=== PATIENT | female | born 1945 | race Asian ===

== ENCOUNTER 2016-04-20 08:05 | Day surgery (SDC) | payer OTHER ==
[2016-04-19 13:40] VITALS: BMI 31.1
[2016-04-20] MEDS ORDERED: LIDOCAINE HCL/PF 1% SDV 5ML VIAL ONE (09:18)
[2016-04-20] MEDS ORDERED: PROPOFOL 20 ML ONE ×2 (09:18)
[2016-04-20 10:26] VITALS: TEMP 97.2
[2016-04-20 11:10] VITALS: BP 134/56; PULSE 56
== END 2016-04-20 11:10 | disposition home or self-care (01) ==
LOC: JASU-ENDO 08:05
PROVIDERS: ATTEND Internal Medicine Gastroenterology
PROC: 0DJD8ZZ Inspection of Lower Intestinal Tract, Via Natural or Artificial Opening Endoscopic (ICD-10-PCS; principal; 2016-04-20 09:00)
DX: K62.89 Other specified diseases of anus and rectum (principal); R19.4 Change in bowel habit; K64.8 Other hemorrhoids; Q43.8 Other specified congenital malformations of intestine

== ENCOUNTER 2016-05-04 08:16 | Day surgery (SDC) | payer OTHER ==
[2016-05-04 08:41] VITALS: BMI 29.6
[2016-05-04] MEDS ORDERED: PROPOFOL 20 ML ONE (09:21)
[2016-05-04] MEDS ORDERED: LIDOCAINE HCL/PF 1% SDV 5ML VIAL ONE (09:21)
[2016-05-04 10:07] VITALS: TEMP 98.1
[2016-05-04 11:24] VITALS: BP 123/60; PULSE 55
--- NOTE | 2016-05-05 13:29 | PATH ---
Surgical Pathology Report Patient Name: AMA ACHARYA [facility]. Rec. #: [id number] /Age/Gender: 1945 (Age: 70) / F Account: [id number] Location: [facility]-ENDOSCOPY Taken: 05/04/2016 Received: 05/04/2016 Reported: 05/05/2016 Physicians: Emil Chiu M.D. Specimen(s) Received A: BX EROSION BODY B: BX 2ND PORTION DUODENUM C: BX GE JUNCTION IRREGULAR Z-LINE Clinical History Abdominal pain, GERD, nausea and vomiting, early satiety, anemia Irregular Z-line in GE junction, gastritis Final Diagnosis A. STOMACH, BODY, EROSION, BIOPSY: GASTRIC OXYNTIC MUCOSA WITH MODERATE CHRONIC GASTRITIS WITH SURFACE EROSION. IMMUNOSTAIN FOR H. PYLORI IS NEGATIVE FOR ORGANISMS. B. DUODENUM, SECOND PORTION, BIOPSY: DUODENAL MUCOSA WITH MILD CHRONIC INFLAMMATION. NO HISTOLOGIC EVIDENCE OF GLUTEN SENSITIVE ENTEROPATHY (CELIAC DISEASE). C. GE JUNCTION, IRREGULAR Z-LINE, BIOPSY: SQUAMOCOLUMNAR JUNCTIONAL MUCOSA WITH CHRONIC INFLAMMATION AND REFLUX TYPE CHANGES. NO INTESTINAL METAPLASIA (OCASIO'S ESOPHAGUS) IDENTIFIED. Electronically Signed Justus West M.D. Gross Description A. Received in formalin, labeled "biopsy erosion of body" are 4 huff, irregular portions of soft tissue ranging from 0.2-0.3 cm in greatest dimension. The specimens are submitted in toto in one cassette. B. Received in formalin, labeled "biopsy second portion of duodenum" are 2 huff, irregular portions of soft tissue measuring 0.1 and 0.3 cm in greatest dimension. The specimens are submitted in toto in one cassette. C. Received in formalin, labeled "biopsy GE junction irregular Z line" is a huff, irregular portion of soft tissue measuring 0.3 cm in greatest dimension. The specimen is submitted in toto in one cassette. 05/04/201605/04/2016
== END 2016-05-04 11:24 | disposition home or self-care (01) ==
LOC: JASU-ENDO 08:16
PROVIDERS: ATTEND Internal Medicine Gastroenterology
PROC: 0DB68ZX Excision of Stomach, Via Natural or Artificial Opening Endoscopic, Diagnostic (ICD-10-PCS; 2016-05-04)
PROC: 0DB58ZX Excision of Esophagus, Via Natural or Artificial Opening Endoscopic, Diagnostic (ICD-10-PCS; 2016-05-04)
PROC: 0DB98ZX Excision of Duodenum, Via Natural or Artificial Opening Endoscopic, Diagnostic (ICD-10-PCS; principal; 2016-05-04 09:00)
DX: D64.9 Anemia, unspecified (principal); K25.9 Gastric ulcer, unspecified as acute or chronic, without hemorrhage or perforation; R10.13 Epigastric pain
CPT/HCPCS: 88305-TC; 88342-TC

== ENCOUNTER 2017-08-14 09:29 | Observation (INO) | payer OTHER ==
--- NOTE | 2017-08-14 10:25 | PDOC ---
Attending Attestation - HPI HPI: 08/14/17 12:35 The patient is a 72 year old female with a significant PMH of GERD, hypertension, and hypercholesterolemia who presents to the emergency department with lightheadedness, dizziness and near syncope for 3 days. The patient's daughter reports that the patient has not been eating much food secondary to inability to keep it down. The patient's daughter reports that the patients dizziness has been intermittent for the past 3 days. The patient's daughter states that today the patient had a near syncopal episode. Denies loc or any injury. Denies any other symptoms. Denies chest pain, shortness of breath, headache. Denies fever, chills, nausea, vomit, diarrhea, constipation or any urinary symptoms. Denies any other complaints. PCP: Dr. Cedeño - Physicial Exam PE: 08/14/17 12:35 GENERAL: (+) pale conjunctiva. Awake, alert, and fully oriented, in no acute distress HEAD: No signs of trauma EYES: PERRLA, EOMI, sclera anicteric, conjunctiva clear ENT: Auricles normal inspection, hearing grossly normal, nares patent, oropharynx clear without exudates. Moist mucosa NECK: Normal ROM, supple, no lymphadenopathy, JVD, or masses LUNGS: Breath sounds equal, clear to auscultation bilaterally. No wheezes, and no crackles HEART: Regular rate and rhythm, normal S1 and S2, no murmurs, rubs or gallops ABDOMEN: Soft, nontender, normoactive bowel sounds. No guarding, no rebound. No masses EXTREMITIES: Normal range of motion, no edema. No clubbing or cyanosis. No cords, erythema, or tenderness NEUROLOGICAL: Cranial nerves II through XII grossly intact. Normal speech, normal gait SKIN: Warm, Dry, normal turgor, no rashes or lesions noted. Documentation prepared by Thuy Ramirez, acting as medical assistant internal medicine for Yaneth Hardy MD. <Thuy Ramirez - Last Filed: 08/14/17 12:35> - Resident Resident Name: DouglasVadim - ED Attending Attestation I have performed the following: I have examined & evaluated the patient, The case was reviewed & discussed with the resident, I agree w/resident's findings & plan, Exceptions are as noted - Medical Decision Making 08/14/17 10:24 I, Dr. Yaneth Hardy, DO, attest that this document has been prepared under my direction and personally reviewed by me in its entirety. I further attest, that it accurately reflects all work, treatment, procedures and medical decision -making performed by me. 08/14/17 11:52 a/p: 72yo female with 3 days of near syncope hx of anemia no syncope, no cp/sob denies hematuria or blood in stool - hx of constipation and sigmoid ulcer -gi is Dr. Chiu -hx of dm -will check labs, ekg, cxr -will check orthostatics -will give ivf hydration -will monitor and reassess -on PTU - will check thyroid function 08/14/17 13:[address] Tipton - requests transfusion of 1 unit prbc -requests cards eval daughter at the bedside requests cards to be Dr. Ballesteros will place in obs <Yaneth Hardy - Last Filed: 08/14/17 13:18> Heart Score/ECG Review - ECG Intrepretation Comment:: 08/14/17 11:52 sinus erinn at 57, nl axis, nl interval, t wave flattening diffusely <Yaneth Hardy - Last Filed: 08/14/17 13:18>
--- NOTE | 2017-08-14 10:42 | PDOC ---
History of Present Illness - General Chief Complaint: Lightheaded Stated Complaint: DIZZINESS Time Seen by Provider: 08/14/17 10:17 - History of Present Illness Initial Comments: 08/14/17 10:36 72 year old female with a hx of DM, HTN, HLD, hypothyroidism, anemia presents to the hospital for several day hx of dizziness, lightheadedness and near- syncope. She reports that there were no notable inciting factors. States that she does not feel like the room is spinning. Additionally reports some occasional numbness. The patient's daughter checked her glucose and found it to be 150 yesterday. Denies chest pain, shortness of breath, fevers, chills, nausea , vomiting, diarrhea. Allergies: NKDA PCP: Dr. Abraham Smoke: none Alcohol: none Past History - Past Medical History Allergies/Adverse Reactions: Allergies Allergy/AdvReac Type Severity Reaction Status Date / Time No Known Allergies Allergy Verified 08/14/17 09:46 Home Medications: Ambulatory Orders Propylthiouracil [Ptu -] 50 mg PO DAILY 11/04/12 Simvastatin [Zocor -] 20 mg PO HS 11/04/12 Gabapentin 300 mg PO BID 04/19/16 Glyburide 5 mg PO BID 04/19/16 Losartan Potassium [Cozaar] 25 mg PO DAILY 04/19/16 Omeprazole 20 mg PO DAILY 04/19/16 Insulin (Levemir) [Levemir Vial] 30 unit SQ DAILY 08/14/17 Insulin Glulisine [Apidra] 0 unit SQ ASDIR PRN 08/14/17 Multivitamin [Multiple Vitamins] 1 each PO DAILY 08/14/17 Anemia: Yes Asthma: No Cancer: No Cardiac Disorders: No CVA: No COPD: No CHF: No Dementia: No Diabetes: Yes (IDDM) GI Disorders: Yes (GERD,COLONIC POLYP) Disorders: No HTN: Yes Hypercholesterolemia: Yes Liver Disease: Yes (FATTY LIVER) Seizures: No Thyroid Disease: Yes (THYROID NODULES,GOITER) - Surgical History Abdominal Surgery: No Appendectomy: No Cardiac Surgery: No Cholecystectomy: No Lung Surgery: No Neurologic Surgery: No Orthopedic Surgery: No - Suicide/Smoking/Psychosocial Hx Smoking Status: No Smoking History: Never smoked Number of Cigarettes Smoked Daily: 0 Hx Alcohol Use: No Substance Use Type: None Hx Substance Use Treatment: No *Physical Exam - Vital Signs Last Vital Signs Temp Pulse Resp BP Pulse Ox 99.2 F 63 18 115/60 99 08/14/17 09:44 08/14/17 09:44 08/14/17 09:44 08/14/17 09:44 08/14/17 09:44 - Physical Exam Comments: 08/14/17 10:42 GENERAL: A&Ox3, no acute distress EYES: PERRLA, EOMI, pale conjunctiva ENT: Moist mucus membranes NECK: No JVD LUNGS: CTA, no wheezes HEART: RRR, no murmurs ABDOMEN: Soft, nontender, BS present MUSCULOSKELETAL: No CVA Tenderness EXTREMITIES: 2+ pulses, no edema. NEUROLOGICAL: Cranial nerves II-XII intact. 08/14/17 11:29 ED Treatment Course - LABORATORY CBC & Chemistry Diagram: 08/16/17 06:30 08/15/17 06:00 Medical Decision Making - Medical Decision Making 08/14/17 10:43 72yo female with a history of anemia, hypothyroid, HTN, HLD presents for 3 days of dizzness, lightheadedness and near-syncopy DDx: orthostatic hypotension, hypo/hyperglycemia, hypothyroidism, electrolyte abnormality, unlikely vertigo -cbc, cmp, ekg, trop, TSH, free T4, LA, mag, UA, BNP, CXR -will give 500cc bolus of fluids -will re-evaluate 08/14/17 11:28 -orthostatic vitals: Laying down: 123/58 Standin/54 *DC/Admit/Observation/Transfer Diagnosis at time of Disposition: Anemia - Discharge Dispostion Decision to Admit order: Yes - Referrals - Patient Instructions - Post Discharge Activity
[2017-08-14] MEDS ORDERED: SODIUM CHLORIDE 500 ML IV STA (10:43)
[2017-08-14 12:06] LABS: BASO % 0.9 % (0-2.0); EOS % 1.5 % (0-4.5); HEMATOCRIT 26.3 % (32.4-45.2); LYMPH % 31.2 % (8-40); MCHC 30.4 g/dl (32.0-36.0); MEAN CELL VOLUME 60.9 fl (80-96); MEAN PLT VOLUME 8.5 fl (7.5-11.1); MONO % 3.9 % (3.8-10.2); NEUT % 62.5 % (42.8-82.8); PLATELET COUNT 196 K/MM3 (134-434); RBC 4.32 M/mm3 (3.60-5.2); RDW 18.8 % (11.6-15.6); WHITE BLOOD COUNT 7.2 K/mm3 (4.0-10.0)
[2017-08-14 12:07] LABS: URINE APPEARANCE CLEAR; URINE BILIRUBIN NEGATIVE (<2.0 mg/dL); URINE COLOR STRAW; URINE GLUCOSE (UA) 1+ (NEGATIVE); URINE KETONE NEGATIVE (NEGATIVE); URINE LEUK ESTERASE NEGATIVE (NEGATIVE); URINE NITRITE NEGATIVE (NEGATIVE); URINE PROTEIN NEGATIVE (NEGATIVE); URINE UROBILINOGEN NEGATIVE mg/dL (0.2-1.0)
[2017-08-14 12:08] LABS: MCH 18.5 pg (25.7-33.7)
[2017-08-14] MEDS ORDERED: MECLIZINE HCL 12.5 MG TABLET PO ONE (12:42)
[2017-08-14 12:46] LABS: ANISOCYTOSIS 2+; MACROCYTOSIS 0; OVALOCYTE 1+; PLATELET ESTIMATE NORMAL
[2017-08-14 12:47] LABS: ALBUMIN 3.3 g/dl (3.4-5.0); ANION GAP 7 (8-16); BILIRUBIN,TOTAL 0.2 mg/dL (0.2-1.0); BLOOD UREA NITROGEN 10 mg/dL (7-18); CALCIUM 8.6 mg/dL (8.5-10.1); CHLORIDE 109 mmol/L (98-107); CO2 26 mmol/L (21-32); CREATININE 0.8 mg/dL (0.55-1.02); GLUCOSE,RANDOM 179 mg/dL (74-106); MAGNESIUM 2.4 mg/dL (1.8-2.4); SGOT/AST 20 U/L (15-37); SGPT/ALT 25 U/L (12-78); SODIUM 142 mmol/L (136-145)
[2017-08-14 12:51] LABS: ALK PHOS 109 U/L (45-117); N-TERMINAL BNP 114.31 pg/ml (5-125); TOT PROT 7.7 g/dl (6.4-8.2)
[2017-08-14] MEDS ORDERED: MECLIZINE HCL 12.5 MG TABLET ONE (13:13)
--- NOTE | 2017-08-14 19:18 | CON.CARD ---
Consult Consult Specialty:: Cardiology - History of Present Illness Chief Complaint: dizziness, near syncope History of Present Illness: 72 year old female with a hx of DM, HTN, HLD, hypothyroidism, anemia presents to the hospital for several day hx of dizziness, lightheadedness and near- syncope. She reports that there were no notable inciting factors. States that she does not feel like the room is spinning. Additionally reports some occasional numbness. The patient's daughter checked her glucose and found it to be 150 yesterday. Denies chest pain, shortness of breath, fevers, chills, nausea , vomiting, diarrhea. PMH of GERD, hypertension, and hypercholesterolemia who presents to the emergency department with lightheadedness, dizziness and near syncope for 3 days. The patient's daughter reports that the patient has not been eating much food secondary to inability to keep it down. The patient's daughter reports that the patients dizziness has been intermittent for the past 3 days. The patient's daughter states that today the patient had a near syncopal episode. Denies loc or any injury. Denies any other symptoms. Denies chest pain, shortness of breath, headache. Denies fever, chills, nausea, vomit, diarrhea, constipation or any urinary symptoms. Denies any other complaints. PCP: Dr. Cedeño - History Source History Provided By: Patient, Medical Record - Past Medical History Cardio/Vascular: Yes: HTN, Hyperlipdemia Endocrine: Yes: Diabetes Mellitus, Hypothyroidism - Alcohol/Substance Use Hx Alcohol Use: No - Smoking History Smoking history: Never smoked Aproximately how many cigarettes per day: 0 Home Medications - Allergies Allergies/Adverse Reactions: Allergies Allergy/AdvReac Type Severity Reaction Status Date / Time No Known Allergies Allergy Verified 08/14/17 09:46 - Home Medications Home Medications: Ambulatory Orders Propylthiouracil [Ptu -] 50 mg PO DAILY 11/04/12 Simvastatin [Zocor -] 20 mg PO HS 11/04/12 Gabapentin 300 mg PO BID 04/19/16 Glyburide 5 mg PO BID 04/19/16 Losartan Potassium [Cozaar] 25 mg PO DAILY 04/19/16 Omeprazole 20 mg PO DAILY 04/19/16 Insulin (Levemir) [Levemir Vial] 30 unit SQ DAILY 08/14/17 Insulin Glulisine [Apidra] 0 unit SQ ASDIR PRN 08/14/17 Multivitamin [Multiple Vitamins] 1 each PO DAILY 08/14/17 Review of Systems - Review of Systems Constitutional: reports: No Symptoms Eyes: reports: No Symptoms HENT: reports: No Symptoms Neck: reports: No Symptoms Cardiovascular: reports: No Symptoms Gastrointestinal: reports: No Symptoms Genitourinary: reports: No Symptoms Breasts: reports: No Symptoms Reported Musculoskeletal: reports: No Symptoms Integumentary: reports: No Symptoms Neurological: reports: Dizziness, Syncope Endocrine: reports: No Symptoms Hematology/Lymphatic: reports: No Symptoms Psychiatric: reports: No Symptoms Vital Signs: Vital Signs Temperature 98.2 F 08/14/17 17:35 Pulse Rate 58 L 08/14/17 17:35 Respiratory Rate 17 08/14/17 17:35 Blood Pressure 124/58 08/14/17 17:35 O2 Sat by Pulse Oximetry (%) 100 08/14/17 17:35 Constitutional: Yes: Well Nourished, No Distress, Calm Eyes: Yes: WNL, Conjunctiva Clear, EOM Intact HENT: Yes: WNL, Atraumatic, Normocephalic Neck: Yes: WNL, Supple, Trachea Midline Respiratory: Yes: WNL, Regular, CTA Bilaterally Gastrointestinal: Yes: WNL, Normal Bowel Sounds Renal/: Yes: WNL Cardiovascular: Yes: WNL, Regular Rate and Rhythm Musculoskeletal: Yes: WNL Extremities: Yes: WNL Integumentary: Yes: WNL Neurological: Yes: WNL, Alert, Oriented ...Motor Strength: WNL Psychiatric: Yes: WNL, Alert, Oriented - Other Data Labs, Other Data: CBC, BMP 08/14/17 12:00 08/14/17 12:00 Troponin, BNP 08/14/17 08/14/17 12:00 12:00 Troponin I < 0.02 B-Natriuretic Peptide 114.31 Cancelled Troponin, BNP 08/14/17 08/14/17 12:00 12:00 Troponin I < 0.02 B-Natriuretic Peptide 114.31 Cancelled Imaging - Results Chest X-ray: Image Reviewed (no i/e) EKG: Image Reviewed (sr rep abn) Problem List - Problems (1) Anemia Code(s): D64.9 - ANEMIA, UNSPECIFIED Assessment/Plan GERD, hypertension, hypothyroidism, and hypercholesterolemia who presents to the emergency department with anemia lightheadedness, dizziness and near syncope for 3 days no evidence of CHF mi, arrhythmia Plan; cardiac loo stable echo telemetry gi w/u.
--- NOTE | 2017-08-14 19:36 | EKG ---
Test Reason : Blood Pressure : / mmHG Vent. Rate : 057 BPM Atrial Rate : 057 BPM P-R Int : 148 ms QRS Dur : 078 ms QT Int : 420 ms P-R-T Axes : 067 047 038 degrees QTc Int : 408 ms SINUS BRADYCARDIA POSSIBLE LEFT ATRIAL ENLARGEMENT NONSPECIFIC T WAVE ABNORMALITY ABNORMAL ECG WHEN COMPARED WITH ECG OF 14-AUG-2008 11:46, NONSPECIFIC T WAVE ABNORMALITY, WORSE IN ANTERIOR LEADS Confirmed by ELSA OLIVAS, JENNIFER ([id number]) on 08/14/2017 7:36:34 PM Referred By: Confirmed By:JENNIFER HUNTER MD
[2017-08-14] MEDS ORDERED: INSULIN (LEVEMIR) 100 UNITS/ML UNITS SQ SCH ×2 (22:00)
[2017-08-14] MEDS ORDERED: LOSARTAN POTASSIUM 25 MG TABLET ONE (23:03)
[2017-08-14] MEDS ORDERED: ATORVASTATIN CA 40 MG TABLET (FP) ONE (23:03)
[2017-08-14] MEDS ORDERED: INSULIN (LEVEMIR) 100 UNITS/ML UNITS SQ ONE (23:04)
[2017-08-14] MEDS: ATORVASTATIN CA 20 MG TABLET (FP) PO SCH (23:10)
[2017-08-14] MEDS: LOSARTAN POTASSIUM 25 MG TABLET PO SCH (23:10)
[2017-08-15 03:04] VITALS: BMI 28.0
[2017-08-15 07:22] LABS: BASO % 0.9 % (0-2.0); EOS % 3.2 % (0-4.5); HEMATOCRIT 30.9 % (32.4-45.2); HEMOGLOBIN 9.7 GM/dL (10.7-15.3); LYMPH % 47.5 % (8-40); MCH 20.8 pg (25.7-33.7); MCHC 31.4 g/dl (32.0-36.0); MEAN CELL VOLUME 66.1 fl (80-96); MEAN PLT VOLUME 8.7 fl (7.5-11.1); MONO % 5.6 % (3.8-10.2); NEUT % 42.8 % (42.8-82.8); PLATELET COUNT 189 K/MM3 (134-434); RBC 4.68 M/mm3 (3.60-5.2); RDW 24.4 % (11.6-15.6); WHITE BLOOD COUNT 7.9 K/mm3 (4.0-10.0)
[2017-08-15 07:46] LABS: CHLORIDE 111 mmol/L (98-107); SODIUM 144 mmol/L (136-145)
[2017-08-15 08:03] LABS: ALK PHOS 96 U/L (45-117); ANION GAP 7 (8-16); BILIRUBIN,TOTAL 0.3 mg/dL (0.2-1.0); BLOOD UREA NITROGEN 9 mg/dL (7-18); CALCIUM 8.7 mg/dL (8.5-10.1); CO2 26 mmol/L (21-32); CREATININE 0.6 mg/dL (0.55-1.02); GLUCOSE,RANDOM 72 mg/dL (74-106); SGOT/AST 20 U/L (15-37); SGPT/ALT 22 U/L (12-78)
[2017-08-15] MEDS: glyBURIDE 5 MG TABLET (UD) PO SCH (09:17)
[2017-08-15] MEDS: LOSARTAN POTASSIUM 25 MG TABLET PO SCH (09:17)
[2017-08-15] MEDS: PANTOPRAZOLE 20 MG TABLET (FP) PO SCH (09:17)
--- NOTE | 2017-08-15 11:18 | HP ---
DATE OF ADMISSION: 08/14/2017 HISTORY OF PRESENT ILLNESS: Patient is a 72-year-old female with a history of diabetes, hypertension, hyperlipidemia, hypothyroidism, and anemia who presented to the hospital for several days of dizziness, lightheadedness, and near syncope. There is no nausea, no vomiting. Patient checked her glucose at home and it showed 150. Patient has no chest pain, shortness of breath, fever, chills, nausea, vomiting , or diarrhea. No history of headache. No blurry vision. No palpitations. PAST MEDICAL HISTORY: Patient had a history of hypothyroidism, hypercholesterolemia, diabetes, anemia, history of Crohn's disease, colon polyp, fatty liver, and thyroid _nodule SURGICAL HISTORY: Nothing significant. PERSONAL HISTORY: No history of smoking, drugs, or alcohol. ALLERGIES: No known drug allergies. MEDICATIONS: Patient is on PTU 50 mg daily, simvastatin 10 mg daily, Colace 100 mg, gabapentin 100 mg p.o. b.i.d., Viibryd 5 mg p.o. daily, Lantus 38 units daily, losartan potassium 25 mg daily, omeprazole 20 mg p.o. daily. SOCIAL HISTORY: Patient lives with her family. REVIEW OF SYSTEMS: General: Pallor present. Respiratory: Nothing significant. Cardiovascular: History of hypertension, hypercholesterolemia. Gastrointestinal: History of fatty liver with colonic polyp. Central Nervous System: No seizure disorders. Occasional dizziness. Musculoskeletal: Nothing significant. PHYSICAL EXAMINATION: Vital Signs: Temperature 99.2, pulse 63, respirations 18, blood pressure 115/60 , pulse 99 per minute. General: Alert, oriented x3, in no acute distress. HEENT: Pupils are equal, reactive to light and accommodation. Moist mucus membranes. Neck: No JVD. Lungs: Clear to auscultation. Heart: First and second sound normal. Abdomen: Soft, nontender. No mass present. Musculoskeletal: No CVA tenderness. Extremities: Radial pulses present. Neurologic: Cranial nerves intact. No apparent motor or sensory deficit. Reflexes are normal. DIAGNOSTIC DATA: X-ray of the chest showed no acute infiltrate. EKG shows sinus bradycardia. Possible left atrial enlargement. Nonspecific T-wave abnormality. Patient was given IV fluids and antibiotics in the emergency room. Regarding the labs, CBC: Hemoglobin 18, hematocrit 36.3, WBC 7.2, platelets 196. Chemistries : Sodium 142, potassium 4, chloride 109, bicarbonate 26, BUN 10, creatinine 0.8, glucose of 179, lactic acid of 1.6, calcium 8.6, AST and ALT are normal. CK 196 , troponin negative, BNP 114.31. Free T4 0.84 and normal. TSH is 0.2. Urine glucose 1+. Patient requires observation. ADMITTING DIAGNOSES: Anemia, dizziness, near syncope, negative hypertension. PLAN: Transfuse 1 unit of blood, packed RBCs. Cardiology consultation. Monitor the patient. Repeat the CBC in the a.m. Continue the home medications. Observe the patient for 24 hours. If stable and the hemoglobin is stable, the patient will be discharged home. Patient is stable on the floor. THI RUTLEDGE M.D. [id number] MTDD
--- NOTE | 2017-08-15 11:28 | PN ---
Progress Note, Physician Chief Complaint: Pt lying in bed Mild dizziness present s/p bllod transfusion CBC improved cardiology consult GI w/u for anemia - Current Medication List Current Medications: Active Medications Atorvastatin Calcium (Lipitor -) 20 mg PO HS [facility] Last Admin: 08/14/17 23:10 Dose: 20 mg Glyburide (Diabeta -) 5 mg PO DAILY@0700 [facility] Last Admin: 08/15/17 09:17 Dose: 5 mg Insulin Detemir (Levemir Vial) 30 units SQ HS [facility] Last Admin: 08/14/17 23:11 Dose: 30 units Losartan Potassium (Cozaar -) 25 mg PO DAILY [facility] Last Admin: 08/15/17 09:17 Dose: 25 mg Pantoprazole Sodium (Protonix -) 20 mg PO DAILY [facility] Last Admin: 08/15/17 09:17 Dose: 20 mg - Objective Vital Signs: Vital Signs Temperature 97.1 F L 08/15/17 02:56 Pulse Rate 51 L 08/15/17 02:56 Respiratory Rate 20 08/15/17 02:56 Blood Pressure 131/59 08/15/17 02:56 O2 Sat by Pulse Oximetry (%) 100 08/14/17 21:25 Constitutional: Yes: No Distress Eyes: Yes: Conjunctiva Clear HENT: Yes: Atraumatic, Normocephalic Neck: Yes: Supple, Trachea Midline Cardiovascular: Yes: Regular Rate and Rhythm Respiratory: Yes: Regular, CTA Bilaterally Gastrointestinal: Yes: Normal Bowel Sounds, Soft Musculoskeletal: Yes: WNL Extremities: Yes: WNL Edema: No Peripheral Pulses WNL: Yes Neurological: Yes: WNL, Alert, Oriented ...Motor Strength: WNL Psychiatric: Yes: Alert, Oriented Labs: CBC, BMP 08/15/17 06:00 08/15/17 06:00 Assessment/Plan ANEMIA dizziness DM hypertension hypercholestrolemia GERD PLAN monitor the Patient GI evaluation Cardilogy f/u neurology consult Continue medications
[2017-08-15] MEDS: INSULIN (LEVEMIR) 100 UNITS/ML UNITS SQ SCH (12:38)
[2017-08-15] MEDS ORDERED: INSULIN (LEVEMIR) 100 UNITS/ML UNITS SQ ONE (12:40)
--- NOTE | 2017-08-15 13:27 | PN ---
Progress Note, Physician History of Present Illness: 72 year old female with a hx of DM, HTN, HLD, hypothyroidism, anemia presents to the hospital for several day hx of dizziness, lightheadedness and near- syncope. She reports that there were no notable inciting factors. States that she does not feel like the room is spinning. Additionally reports some occasional numbness. The patient's daughter checked her glucose and found it to be 150 yesterday. Denies chest pain, shortness of breath, fevers, chills, nausea , vomiting, diarrhea. PMH of GERD, hypertension, and hypercholesterolemia who presents to the emergency department with lightheadedness, dizziness and near syncope for 3 days. The patient's daughter reports that the patient has not been eating much food secondary to inability to keep it down. The patient's daughter reports that the patients dizziness has been intermittent for the past 3 days. The patient's daughter states that today the patient had a near syncopal episode. Denies loc or any injury. Denies any other symptoms. Denies chest pain, shortness of breath, headache. Denies fever, chills, nausea, vomit, diarrhea, constipation or any urinary symptoms. Denies any other complaints. PCP: Dr. Cedeño - Current Medication List Current Medications: Active Medications Atorvastatin Calcium (Lipitor -) 20 mg PO HS [facility] Last Admin: 08/14/17 23:10 Dose: 20 mg Glyburide (Diabeta -) 5 mg PO DAILY@0700 [facility] Last Admin: 08/15/17 09:17 Dose: 5 mg Insulin Aspart (Novolog Vial Sliding Scale -) 1 vial SQ ACHS [facility]; Protocol Insulin Detemir (Levemir Vial) 30 units SQ ACBK [facility] Last Admin: 08/15/17 12:38 Dose: 30 units Losartan Potassium (Cozaar -) 25 mg PO DAILY [facility] Last Admin: 08/15/17 09:17 Dose: 25 mg Pantoprazole Sodium (Protonix -) 20 mg PO DAILY [facility] Last Admin: 08/15/17 09:17 Dose: 20 mg - Objective Vital Signs: Vital Signs Temperature 97.1 F L 08/15/17 02:56 Pulse Rate 51 L 08/15/17 02:56 Respiratory Rate 20 08/15/17 02:56 Blood Pressure 131/59 08/15/17 02:56 O2 Sat by Pulse Oximetry (%) 100 08/14/17 21:25 Eyes: Yes: WNL, Conjunctiva Clear, EOM Intact HENT: Yes: WNL, Atraumatic, Normocephalic Neck: Yes: WNL, Supple, Trachea Midline Cardiovascular: Yes: WNL, Regular Rate and Rhythm Respiratory: Yes: WNL, Regular, CTA Bilaterally Gastrointestinal: Yes: WNL, Normal Bowel Sounds Genitourinary: Yes: WNL Musculoskeletal: Yes: WNL Extremities: Yes: WNL Edema: No Integumentary: Yes: WNL Neurological: Yes: WNL, Alert, Oriented ...Motor Strength: WNL Psychiatric: Yes: WNL Labs: CBC, BMP 08/15/17 06:00 08/15/17 06:00 Laboratory Tests 08/14/17 08/14/17 08/14/17 12:00 12:00 12:00 WBC RBC Hgb Hct MCV MCH MCHC RDW Plt Count MPV Absolute Neuts (auto) Neutrophils % Lymphocytes % Monocytes % Eosinophils % Basophils % Nucleated RBC % Hypochromia Platelet Estimate Polychromasia Poikilocytosis Basophilic Stippling Anisocytosis Microcytosis Macrocytosis Ovalocytes Sodium 142 Potassium 4.0 Chloride 109 H Carbon Dioxide 26 Anion Gap 7 L BUN 10 Creatinine 0.8 Creat Clearance w eGFR > 60 POC Glucometer Random Glucose 179 H Lactic Acid 1.6 Calcium 8.6 Magnesium 2.4 Total Bilirubin 0.2 D AST 20 ALT 25 Alkaline Phosphatase 109 Creatine Kinase 196 H Creatine Kinase Index 0.9 CK-MB (CK-2) 1.77 Troponin I < 0.02 B-Natriuretic Peptide 114.31 Total Protein 7.7 Albumin 3.3 L TSH Free T4 Urine Color Straw Urine Appearance Clear Urine pH 5.0 Ur Specific [place] 1.004 Urine Protein Negative Urine Glucose (UA) 1+ H Urine Ketones Negative Urine Blood Negative Urine Nitrite Negative Urine Bilirubin Negative Urine Urobilinogen Negative Ur Leukocyte Esterase Negative Blood Type Antibody Screen Crossmatch 08/14/17 08/14/17 08/14/17 12:00 12:00 12:00 WBC 7.2 RBC 4.32 Hgb 8.0 L D Hct 26.3 L MCV 60.9 L MCH 18.5 L MCHC 30.4 L RDW 18.8 H Plt Count 196 MPV 8.5 Absolute Neuts (auto) 4.5 Neutrophils % 62.5 Lymphocytes % 31.2 Monocytes % 3.9 Eosinophils % 1.5 Basophils % 0.9 Nucleated RBC % 0 Hypochromia 2+ Platelet Estimate Normal Polychromasia 1+ Poikilocytosis 1+ Basophilic Stippling 1+ Anisocytosis 2+ Microcytosis 2+ Macrocytosis 0 Ovalocytes 1+ Sodium Potassium Chloride Carbon Dioxide Anion Gap BUN Creatinine Creat Clearance w eGFR POC Glucometer Random Glucose Lactic Acid Calcium Magnesium Total Bilirubin AST ALT Alkaline Phosphatase Creatine Kinase Creatine Kinase Index CK-MB (CK-2) Troponin I B-Natriuretic Peptide Cancelled Total Protein Albumin TSH Free T4 Urine Color Urine Appearance Urine pH Ur Specific [place] Urine Protein Urine Glucose (UA) Urine Ketones Urine Blood Urine Nitrite Urine Bilirubin Urine Urobilinogen Ur Leukocyte Esterase Blood Type O POSITIVE Antibody Screen Negative Crossmatch See Detail 08/14/17 08/14/17 08/14/17 12:00 12:50 23:12 WBC RBC Hgb Hct MCV MCH MCHC RDW Plt Count MPV Absolute Neuts (auto) Neutrophils % Lymphocytes % Monocytes % Eosinophils % Basophils % Nucleated RBC % Hypochromia Platelet Estimate Polychromasia Poikilocytosis Basophilic Stippling Anisocytosis Microcytosis Macrocytosis Ovalocytes Sodium Potassium Chloride Carbon Dioxide Anion Gap BUN Creatinine Creat Clearance w eGFR POC Glucometer [phone] Random Glucose Lactic Acid Calcium Magnesium Total Bilirubin AST ALT Alkaline Phosphatase Creatine Kinase Creatine Kinase Index CK-MB (CK-2) Troponin I B-Natriuretic Peptide Total Protein Albumin TSH 0.20 L Free T4 0.84 Urine Color Urine Appearance Urine pH Ur Specific [place] Urine Protein Urine Glucose (UA) Urine Ketones Urine Blood Urine Nitrite Urine Bilirubin Urine Urobilinogen Ur Leukocyte Esterase Blood Type O POSITIVE Antibody Screen Crossmatch 08/15/17 08/15/17 08/15/17 06:00 06:00 11:50 WBC 7.9 RBC 4.68 Hgb 9.7 L D Hct 30.9 L D MCV 66.1 L MCH 20.8 L D MCHC 31.4 L RDW 24.4 H Plt Count 189 MPV 8.7 Absolute Neuts (auto) 3.4 Neutrophils % 42.8 D Lymphocytes % 47.5 H D Monocytes % 5.6 Eosinophils % 3.2 D Basophils % 0.9 Nucleated RBC % 0 Hypochromia Platelet Estimate Polychromasia Poikilocytosis Basophilic Stippling Anisocytosis Microcytosis Macrocytosis Ovalocytes Sodium 144 Potassium 4.0 Chloride 111 H Carbon Dioxide 26 Anion Gap 7 L BUN 9 Creatinine 0.6 Creat Clearance w eGFR > 60 POC Glucometer 237 Random Glucose 72 L Lactic Acid Calcium 8.7 Magnesium Total Bilirubin 0.3 D AST 20 ALT 22 Alkaline Phosphatase 96 Creatine Kinase Creatine Kinase Index CK-MB (CK-2) Troponin I B-Natriuretic Peptide Total Protein 7.0 Albumin 3.0 L TSH Free T4 Urine Color Urine Appearance Urine pH Ur Specific [place] Urine Protein Urine Glucose (UA) Urine Ketones Urine Blood Urine Nitrite Urine Bilirubin Urine Urobilinogen Ur Leukocyte Esterase Blood Type Antibody Screen Crossmatch Problem List - Problems (1) Anemia Code(s): D64.9 - ANEMIA, UNSPECIFIED Assessment/Plan GERD, hypertension, hypothyroidism, and hypercholesterolemia who presents to the emergency department with anemia lightheadedness, dizziness and near syncope for 3 days no evidence of CHF mi, arrhythmia Plan; cardiac loo stable echo telemetry gi w/u.
[2017-08-15] MEDS: INSULIN SLIDING SCALE (NOVOLOG) 1 VIAL SQ SCH ×2 (16:39→21:01)
[2017-08-15] MEDS: ATORVASTATIN CA 20 MG TABLET (FP) PO SCH (21:05)
[2017-08-16 06:51] LABS: BASO % 0.8 % (0-2.0); EOS % 3.3 % (0-4.5); HEMATOCRIT 35.3 % (32.4-45.2); HEMOGLOBIN 10.9 GM/dL (10.7-15.3); LYMPH % 32.4 % (8-40); MCH 20.2 pg (25.7-33.7); MCHC 30.8 g/dl (32.0-36.0); MEAN CELL VOLUME 65.6 fl (80-96); MEAN PLT VOLUME 8.5 fl (7.5-11.1); MONO % 4.2 % (3.8-10.2); NEUT % 59.3 % (42.8-82.8); PLATELET COUNT 241 K/MM3 (134-434); RBC 5.38 M/mm3 (3.60-5.2); RDW 25.9 % (11.6-15.6); WHITE BLOOD COUNT 8.4 K/mm3 (4.0-10.0)
[2017-08-16] MEDS: glyBURIDE 5 MG TABLET (UD) PO SCH (09:21)
[2017-08-16] MEDS: INSULIN (LEVEMIR) 100 UNITS/ML UNITS SQ SCH (09:21)
[2017-08-16] MEDS: INSULIN SLIDING SCALE (NOVOLOG) 1 VIAL SQ SCH ×2 (09:21→11:31)
[2017-08-16] MEDS: PANTOPRAZOLE 20 MG TABLET (FP) PO SCH (09:21)
[2017-08-16] MEDS: LOSARTAN POTASSIUM 25 MG TABLET PO SCH (09:21)
[2017-08-16] MEDS ORDERED: MECLIZINE HCL 12.5 MG TABLET PO PRN (09:29)
--- NOTE | 2017-08-16 09:29 | CONSULT ---
Consult - text type - Consultation Consultation Note: Neurology History of Present Illness - General Chief Complaint: Lightheaded Stated Complaint: DIZZINESS Time Seen by Provider: 08/14/17 10:17 - History of Present Illness 72 year old female with a hx of DM, HTN, HLD, hypothyroidism, anemia presents to the hospital for several day hx of dizziness, lightheadedness and near- syncope. She reported that there were no notable inciting factors. Stated that she does not feel like the room is spinning. Additionally reported some occasional numbness. The patient's daughter checked her glucose and found it to be 150 day prior to admission. Denies chest pain, shortness of breath, fevers, chills, nausea, vomiting, diarrhea. Found to have anemia on labs, treated. Discussed with her importance of tight glycemic control. Large fluctuations can precipitate symptoms. Reports feeling more at baseline today. No focal deficits noted. She mentating without difficulty and interactive. Past History - Past Medical History Allergies/Adverse Reactions: Allergies Allergy/AdvReac Type Severity Reaction Status Date / Time No Known Allergies Allergy Verified 08/14/17 09:46 Home Medications: Ambulatory Orders Propylthiouracil [Ptu -] 50 mg PO DAILY 11/04/12 Simvastatin [Zocor -] 20 mg PO HS 11/04/12 Gabapentin 300 mg PO BID 04/19/16 Glyburide 5 mg PO BID 04/19/16 Losartan Potassium [Cozaar] 25 mg PO DAILY 04/19/16 Omeprazole 20 mg PO DAILY 04/19/16 Insulin (Levemir) [Levemir Vial] 30 unit SQ DAILY 08/14/17 Insulin Glulisine [Apidra] 0 unit SQ ASDIR PRN 08/14/17 Multivitamin [Multiple Vitamins] 1 each PO DAILY 08/14/17 Anemia: Yes Asthma: No Cancer: No Cardiac Disorders: No CVA: No COPD: No CHF: No Dementia: No Diabetes: Yes (IDDM) GI Disorders: Yes (GERD,COLONIC POLYP) Disorders: No HTN: Yes Hypercholesterolemia: Yes Liver Disease: Yes (FATTY LIVER) Seizures: No Thyroid Disease: Yes (THYROID NODULES,GOITER) - Surgical History Abdominal Surgery: No Appendectomy: No Cardiac Surgery: No Cholecystectomy: No Lung Surgery: No Neurologic Surgery: No Orthopedic Surgery: No - Suicide/Smoking/Psychosocial Hx Smoking Status: No Smoking History: Never smoked Number of Cigarettes Smoked Daily: 0 Hx Alcohol Use: No Substance Use Type: None Hx Substance Use Treatment: No *Physical Exam Vital Signs Temperature 98 F 08/16/17 07:00 Pulse Rate 54 L 08/16/17 07:00 Respiratory Rate 18 08/16/17 07:00 Blood Pressure 135/58 08/16/17 07:00 O2 Sat by Pulse Oximetry (%) 98 08/16/17 05:00 GENERAL: A&Ox3, no acute distress EYES: PERRLA, EOMI, pale conjunctiva ENT: Moist mucus membranes NECK: No JVD LUNGS: CTA, no wheezes HEART: RRR, no murmurs ABDOMEN: Soft, nontender, BS present MUSCULOSKELETAL: No CVA Tenderness EXTREMITIES: 2+ pulses, no edema. NEUROLOGICAL: Cranial nerves II-XII intact, strenght intact b/l, sensory intact , gait deferred CBCD WBC 8.4 K/mm3 (4.0-10.0) 08/16/17 06:30 RBC 5.38 M/mm3 (3.60-5.2) H 08/16/17 06:30 Hgb 10.9 GM/dL (10.7-15.3) D 08/16/17 06:30 Hct 35.3 % (32.4-45.2) 08/16/17 06:30 MCV 65.6 fl (80-96) L 08/16/17 06:30 MCHC 30.8 g/dl (32.0-36.0) L 08/16/17 06:30 RDW 25.9 % (11.6-15.6) H 08/16/17 06:30 Plt Count 241 K/MM3 (134-434) D 08/16/17 06:30 MPV 8.5 fl (7.5-11.1) 08/16/17 06:30 CMP Sodium 144 mmol/L (136-145) 08/15/17 06:00 Potassium 4.0 mmol/L (3.5-5.1) 08/15/17 06:00 Chloride 111 mmol/L (98-107) H 08/15/17 06:00 Carbon Dioxide 26 mmol/L (21-32) 08/15/17 06:00 Anion Gap 7 (8-16) L 08/15/17 06:00 BUN 9 mg/dL (7-18) 08/15/17 06:00 Creatinine 0.6 mg/dL (0.55-1.02) 08/15/17 06:00 Creat Clearance w eGFR > 60 (>60) 08/15/17 06:00 Random Glucose 72 mg/dL (74-106) L 08/15/17 06:00 Calcium 8.7 mg/dL (8.5-10.1) 08/15/17 06:00 Total Bilirubin 0.3 mg/dL (0.2-1.0) D 08/15/17 06:00 AST 20 U/L (15-37) 08/15/17 06:00 ALT 22 U/L (12-78) 08/15/17 06:00 Alkaline Phosphatase 96 U/L (45-117) 08/15/17 06:00 Total Protein 7.0 g/dl (6.4-8.2) 08/15/17 06:00 Albumin 3.0 g/dl (3.4-5.0) L 08/15/17 06:00 CARDIAC ENZYMES Creatine Kinase 196 IU/L (26-192) H 08/14/17 12:00 Troponin I < 0.02 ng/ml (0.00-0.05) 08/14/17 12:00 Medical Decision Making 72 year old female with a hx of DM, HTN, HLD, hypothyroidism, anemia presents to the hospital for several day hx of dizziness, lightheadedness and near- syncope. She reported that there were no notable inciting factors. Stated that she does not feel like the room is spinning. Additionally reported some occasional numbness. The patient's daughter checked her glucose and found it to be 150 day prior to admission. Denies chest pain, shortness of breath, fevers, chills, nausea, vomiting, diarrhea. Found to have anemia on labs, treated. Discussed with her importance of tight glycemic control. Large fluctuations can precipitate symptoms. Reports feeling more at baseline today. No focal deficits noted. She mentating without difficulty and interactive. Monitor blood pressure , maintain normotensive range, < 130/80, continue anti-HTN medication. Maintain adequate hydration and PO intake. Fall precautions. Will add meclezine PRN.
--- NOTE | 2017-08-16 09:40 | PN ---
Progress Note, Physician Chief Complaint: Pt lying in bed CBC improved cardiology consult and neuro f/u appreciated GI consult for anemia - Current Medication List Current Medications: Active Medications Atorvastatin Calcium (Lipitor -) 20 mg PO HS [facility] Last Admin: 08/15/17 21:05 Dose: 20 mg Glyburide (Diabeta -) 5 mg PO DAILY@0700 [facility] Last Admin: 08/16/17 09:21 Dose: 5 mg Insulin Aspart (Novolog Vial Sliding Scale -) 1 vial SQ ACHS [facility]; Protocol Last Admin: 08/16/17 09:21 Dose: Not Given Insulin Detemir (Levemir Vial) 30 units SQ ACBK [facility] Last Admin: 08/16/17 09:21 Dose: 30 units Losartan Potassium (Cozaar -) 25 mg PO DAILY [facility] Last Admin: 08/16/17 09:21 Dose: 25 mg Meclizine HCl (Antivert -) 12.5 mg PO TID PRN PRN Reason: VERTIGO Pantoprazole Sodium (Protonix -) 20 mg PO DAILY [facility] Last Admin: 08/16/17 09:21 Dose: 20 mg - Objective Vital Signs: Vital Signs Temperature 98 F 08/16/17 07:00 Pulse Rate 54 L 08/16/17 07:00 Respiratory Rate 18 08/16/17 07:00 Blood Pressure 135/58 08/16/17 07:00 O2 Sat by Pulse Oximetry (%) 98 08/16/17 05:00 Constitutional: Yes: No Distress Eyes: Yes: Conjunctiva Clear HENT: Yes: Atraumatic Neck: Yes: Supple, Trachea Midline Cardiovascular: Yes: Regular Rate and Rhythm Respiratory: Yes: Regular, CTA Bilaterally Gastrointestinal: Yes: Normal Bowel Sounds, Soft Musculoskeletal: Yes: WNL Extremities: Yes: WNL Edema: No Peripheral Pulses WNL: Yes Neurological: Yes: WNL, Alert, Oriented ...Motor Strength: WNL Psychiatric: Yes: WNL, Alert Labs: CBC, BMP 08/16/17 06:30 08/15/17 06:00 Assessment/Plan ANEMIA improved dizziness improved DM hypertension hypercholestrolemia GERD PLAN GI evaluation for anemia Continue medications d/c planing
--- NOTE | 2017-08-16 12:24 | PN ---
Progress Note, Physician History of Present Illness: The patient is a 72 year old female (b. [place]), with a significant PMH of GERD , hypertension, vertigo, and hypercholesterolemia, who presents to the emergency department with lightheadedness, dizziness and near syncope for 3 days. The patient's daughter reports that the patient has not been eating much food secondary to inability to keep it down. The patient's daughter reports that the patients dizziness has been intermittent for the past 3 days. The patient's daughter states that today the patient had a near syncopal episode. Denies loc or any injury. Denies any other symptoms. Denies chest pain, shortness of breath, headache. Denies fever, chills, nausea, vomit, diarrhea, constipation or any urinary symptoms. Denies any other complaints. PCP: Dr. Cedeño - Current Medication List Current Medications: Active Medications Atorvastatin Calcium (Lipitor -) 20 mg PO HS [facility] Last Admin: 08/15/17 21:05 Dose: 20 mg Glyburide (Diabeta -) 5 mg PO DAILY@0700 [facility] Last Admin: 08/16/17 09:21 Dose: 5 mg Insulin Aspart (Novolog Vial Sliding Scale -) 1 vial SQ [facility]; Protocol Last Admin: 08/16/17 11:31 Dose: Not Given Insulin Detemir (Levemir Vial) 30 units SQ ACBK [facility] Last Admin: 08/16/17 09:21 Dose: 30 units Losartan Potassium (Cozaar -) 25 mg PO DAILY [facility] Last Admin: 08/16/17 09:21 Dose: 25 mg Meclizine HCl (Antivert -) 12.5 mg PO TID PRN PRN Reason: VERTIGO Last Admin: 08/16/17 11:27 Dose: 12.5 mg Pantoprazole Sodium (Protonix -) 20 mg PO DAILY [facility] Last Admin: 08/16/17 09:21 Dose: 20 mg - Objective Vital Signs: Vital Signs Temperature 98 F 08/16/17 07:00 Pulse Rate 54 L 08/16/17 07:00 Respiratory Rate 18 08/16/17 07:00 Blood Pressure 135/58 08/16/17 07:00 O2 Sat by Pulse Oximetry (%) 98 08/16/17 05:00 Labs: CBC, BMP 08/16/17 06:30 08/15/17 06:00 Problem List - Problems (1) Vertigo Code(s): R42 - DIZZINESS AND GIDDINESS (2) HTN (hypertension) Code(s): I10 - ESSENTIAL (PRIMARY) HYPERTENSION (3) Hyperlipidemia Assessment/Plan: on statin; f/u LDL and triglycerides. Dietary modification; exercise as aids to lipid control. Code(s): E78.5 - HYPERLIPIDEMIA, UNSPECIFIED (4) Diabetes Code(s): E11.9 - TYPE 2 DIABETES MELLITUS WITHOUT COMPLICATIONS (5) Lack of appetite Assessment/Plan: per daughter, pt has had poor appetite for months. F/u with PMD, GI. Code(s): R63.0 - ANOREXIA
[2017-08-16] MEDS ORDERED: MAG HYDROX/AL HYDROX/SIMETH 30 ML UNIT-DOSE CUP PO ONE (14:00)
--- NOTE | 2017-08-16 14:18 | CON.GI ---
Consult Consult Specialty:: Gastroenterology Referred by:: Dr. Abraham Reason for Consultation:: Anemia - History of Present Illness Chief Complaint: Dizziness, lightheadedness and postprandial bloating History of Present Illness: 72F is admitted with lightheadedness, weakness and weight loss related to postprandial bloating and intermittent vomiting. She denies hematemesis, melena or rectal bleeding but her Hb has dwindled down to 8. She has chronic acid reflux complaints. She had a colonoscopy with Dr. Chiu on 04/20/16 which revealed a redundant colon but no recurrence of rectal and sigmoid ulcers found on previous exams. The colon was redundant but was otherwise normal. She also had a EGD on 05/04/16 that revealed gastric erosions. A nuclear gastric emptying scan was also unremarkable. There is no FH of colon cancer. Her daughter served as our campus security officer. He advised a capsule endoscopy but this was never done. She takes Miralax for constipation - History Source History Provided By: Patient Limitations to Obtaining History: No Limitations - Past Medical History Cardio/Vascular: Yes: HTN, Hyperlipdemia Gastrointestinal: Yes: Constipation, GERD ...: No Endocrine: Yes: Diabetes Mellitus (with peripehral neuropathy), Hyperthyroidism (chronically in PTU with residual nodules despite resection) - Past Surgical History Past Surgical History: Yes: Colonoscopy, Hysterectomy (not clear whether ovaries were removed. ), Upper Endoscopy Additional Surgical History: Partial thyoid resection of nodules - Alcohol/Substance Use Hx Alcohol Use: No - Smoking History Smoking history: Never smoked Have you smoked in the past 12 months: No Aproximately how many cigarettes per day: 0 - Social History ADL: Independent Place of : Other (Pati) Home Medications - Allergies Allergies/Adverse Reactions: Allergies Allergy/AdvReac Type Severity Reaction Status Date / Time No Known Allergies Allergy Verified 08/14/17 09:46 - Home Medications Home Medications: Ambulatory Orders Propylthiouracil [Ptu -] 50 mg PO DAILY 11/04/12 Simvastatin [Zocor -] 20 mg PO HS 11/04/12 Gabapentin 300 mg PO BID 04/19/16 Glyburide 5 mg PO BID 04/19/16 Losartan Potassium [Cozaar] 25 mg PO DAILY 04/19/16 Omeprazole 20 mg PO DAILY 04/19/16 Insulin (Levemir) [Levemir Vial] 30 unit SQ DAILY 08/14/17 Insulin Glulisine [Apidra] 0 unit SQ ASDIR PRN 08/14/17 Multivitamin [Multiple Vitamins] 1 each PO DAILY 08/14/17 Meclizine HCl [Antivert -] 12.5 mg PO TID #21 tablet 08/16/17 Family Disease History - Family Disease History Family Disease History: Diabetes: Brother, Heart Disease: Brother, CA: Sister ( lung and breast) Review of Systems Unable to obtain ROS, reason: language Physical Exam-GI Vital Signs: Vital Signs Temperature 98 F 08/16/17 11:00 Pulse Rate 55 L 08/16/17 11:00 Respiratory Rate 18 08/16/17 11:00 Blood Pressure 128/51 08/16/17 11:00 O2 Sat by Pulse Oximetry (%) 98 08/16/17 11:00 CBC,CMP WBC 8.4 K/mm3 (4.0-10.0) 08/16/17 06:30 RBC 5.38 M/mm3 (3.60-5.2) H 08/16/17 06:30 Hgb 10.9 GM/dL (10.7-15.3) D 08/16/17 06:30 Hct 35.3 % (32.4-45.2) 08/16/17 06:30 MCV 65.6 fl (80-96) L 08/16/17 06:30 MCH 20.2 pg (25.7-33.7) L 08/16/17 06:30 MCHC 30.8 g/dl (32.0-36.0) L 08/16/17 06:30 RDW 25.9 % (11.6-15.6) H 08/16/17 06:30 Plt Count 241 K/MM3 (134-434) D 08/16/17 06:30 MPV 8.5 fl (7.5-11.1) 08/16/17 06:30 Absolute Neuts (auto) 5.0 # 08/16/17 06:30 Neutrophils % 59.3 % (42.8-82.8) D 08/16/17 06:30 Lymphocytes % 32.4 % (8-40) D 08/16/17 06:30 Monocytes % 4.2 % (3.8-10.2) 08/16/17 06:30 Eosinophils % 3.3 % (0-4.5) 08/16/17 06:30 Basophils % 0.8 % (0-2.0) 08/16/17 06:30 Nucleated RBC % 0 % (0-0) 08/16/17 06:30 Hypochromia 2+ 08/14/17 12:00 Platelet Estimate Normal 08/14/17 12:00 Polychromasia 1+ 08/14/17 12:00 Poikilocytosis 1+ 08/14/17 12:00 Basophilic Stippling 1+ 08/14/17 12:00 Anisocytosis 2+ 08/14/17 12:00 Microcytosis 2+ 08/14/17 12:00 Macrocytosis 0 08/14/17 12:00 Ovalocytes 1+ 08/14/17 12:00 Sodium 144 mmol/L (136-145) 08/15/17 06:00 Potassium 4.0 mmol/L (3.5-5.1) 08/15/17 06:00 Chloride 111 mmol/L (98-107) H 08/15/17 06:00 Carbon Dioxide 26 mmol/L (21-32) 08/15/17 06:00 Anion Gap 7 (8-16) L 08/15/17 06:00 BUN 9 mg/dL (7-18) 08/15/17 06:00 Creatinine 0.6 mg/dL (0.55-1.02) 08/15/17 06:00 Creat Clearance w eGFR > 60 (>60) 08/15/17 06:00 POC Glucometer 177 UNITS (80-120) 08/16/17 11:26 Random Glucose 72 mg/dL (74-106) L 08/15/17 06:00 Hemoglobin A1c % 7.7 % (4.8-6.0) H 08/16/17 06:30 Lactic Acid 1.6 mmol/L (0.0-2.0) 08/14/17 12:00 Calcium 8.7 mg/dL (8.5-10.1) 08/15/17 06:00 Magnesium 2.4 mg/dL (1.8-2.4) 08/14/17 12:00 Total Bilirubin 0.3 mg/dL (0.2-1.0) D 08/15/17 06:00 AST 20 U/L (15-37) 08/15/17 06:00 ALT 22 U/L (12-78) 08/15/17 06:00 Alkaline Phosphatase 96 U/L (45-117) 08/15/17 06:00 Creatine Kinase 196 IU/L (26-192) H 08/14/17 12:00 Creatine Kinase Index 0.9 % (0.0-5.0) 08/14/17 12:00 CK-MB (CK-2) 1.77 ng/mL (0.5-3.6) 08/14/17 12:00 Troponin I < 0.02 ng/ml (0.00-0.05) 08/14/17 12:00 B-Natriuretic Peptide 114.31 pg/ml (5-125) 08/14/17 12:00 Total Protein 7.0 g/dl (6.4-8.2) 08/15/17 06:00 Albumin 3.0 g/dl (3.4-5.0) L 08/15/17 06:00 TSH 0.20 uIU/ml (0.358-3.74) L 08/14/17 12:00 Free T4 0.84 ng/dl (0.76-1.46) 08/14/17 12:00 Current Medications Generic Name Dose Route Start Last Admin Trade Name Massimoq PRN Reason Stop Dose Admin Atorvastatin Calcium 20 mg 08/14/17 22:00 08/15/17 21:05 Lipitor - PO 20 mg HS AVRIL Administration Glyburide 5 mg 08/15/17 07:00 08/16/17 09:21 Diabeta - PO 5 mg DAILY@0700 AVRIL Administration Insulin Aspart 1 vial 08/15/17 16:30 08/16/17 11:31 Novolog Vial Sliding Scale - SQ Not Given ACHS ON LICENSE OF [facility] Protocol Insulin Detemir 30 units 08/15/17 12:30 08/16/17 09:21 Levemir Vial SQ 30 units ACBK AVRIL Administration Losartan Potassium 25 mg 08/14/17 21:26 08/16/17 09:21 Cozaar - PO 25 mg DAILY AVRIL Administration Meclizine HCl 12.5 mg 08/16/17 09:29 08/16/17 11:27 Antivert - PO 12.5 mg TID PRN Administration VERTIGO Pantoprazole Sodium 20 mg 08/15/17 10:00 08/16/17 09:21 Protonix - PO 20 mg DAILY AVRIL Administration Constitutional: Yes: Calm Eyes: Yes: Conjunctiva Clear HENT: Yes: Atraumatic Neck: Yes: Other (healed transverse incision) Cardiovascular: Yes: Regular Rate and Rhythm Respiratory: Yes: CTA Bilaterally Gastrointestinal Inspection: Yes: Scars (healed Pfannensteil incision) ...Auscultate: Yes: Normoactive Bowel Sounds ...Palpate: Yes: Soft, Other ...Percussion: Yes: Dullness ...Rectal Exam: Yes: Guaiac Negative (soft brown guaiac negative stool) Labs: CBC, BMP 08/16/17 06:30 08/15/17 06:00 Problem List - Problems (1) Anemia Assessment/Plan: Despite the fact that Alis is guaiac negative her microcytic indices still suggest iron losses. A capsule endoscopy can be pursued as an outpatient. A ferritin and iron studies will be repeated. Will defer endoscopic evaluation as she had EGD and colonoscopy only about a year ago. A hematology evaluation has been advised to Alis's daughter who will pursue this as an outpatient. She will then followup in our office., Code(s): D64.9 - ANEMIA, UNSPECIFIED (2) GERD (gastroesophageal reflux disease) Assessment/Plan: I have advised supplementing the PPI with Gaviscon. Code(s): K21.9 - GASTRO-ESOPHAGEAL REFLUX DISEASE WITHOUT ESOPHAGITIS (3) Vomiting Assessment/Plan: A trial of beano and dividing her caloric intake into multiple smaller meals has been advised. I also advised that she continue the Miralax. Code(s): R11.10 - VOMITING, UNSPECIFIED
[2017-08-16 15:36] VITALS: BP 133/57; PULSE 53; TEMP 98.6
== END 2017-08-16 16:18 | disposition home or self-care (01) ==
LOC: JER 09:29 → JERBED 14:00 → J4S 08-15 02:54
PROVIDERS: ADMIT Family Medicine; ATTEND Family Medicine
PROC: 30233N1 Transfusion of Nonautologous Red Blood Cells into Peripheral Vein, Percutaneous Approach (ICD-10-PCS; principal; 2017-08-14)
PROC: 3E0337Z Introduction of Electrolytic and Water Balance Substance into Peripheral Vein, Percutaneous Approach (ICD-10-PCS; 2017-08-14)
PROC: 3E013VG Introduction of Insulin into Subcutaneous Tissue, Percutaneous Approach (ICD-10-PCS; 2017-08-14)
DX: D64.9 Anemia, unspecified (principal); R55 Syncope and collapse; R42 Dizziness and giddiness; I10 Essential (primary) hypertension; E78.5 Hyperlipidemia, unspecified; E11.9 Type 2 diabetes mellitus without complications; E03.9 Hypothyroidism, unspecified; K21.9 Gastro-esophageal reflux disease without esophagitis; K76.0 Fatty (change of) liver, not elsewhere classified; E04.9 Nontoxic goiter, unspecified; R63.0 Anorexia; R11.10 Vomiting, unspecified; Z79.4 Long term (current) use of insulin; Z79.84 Long term (current) use of oral hypoglycemic drugs
CPT/HCPCS: 36415; 36430; 71045-TC-FY; 80053; 81003; 82550; 82553; 82962; 83036; 83605; 83735; 83880; 84439; 84443; 84484; 85025; 86850; 86900; 86901; 86922; 93005; 93010; 96360; 96372; 99285-25; G0378; P9038; P9058

== ENCOUNTER 2022-12-24 04:59 | Day surgery (SDC) | payer OTHER ==
[2022-12-22 10:55] VITALS: BMI 22.6
[2022-12-24 12:34] VITALS: BP 150/72; PULSE 66; RESP 15
[2022-12-24 12:43] VITALS: TEMP 97.1
== END 2022-12-24 12:32 | disposition home or self-care (01) ==
LOC: JASU-ENDO 04:59
PROVIDERS: ATTEND Internal Medicine Gastroenterology
PROC: 0DB78ZX Excision of Stomach, Pylorus, Via Natural or Artificial Opening Endoscopic, Diagnostic (ICD-10-PCS; 2022-12-24)
PROC: 0DB68ZX Excision of Stomach, Via Natural or Artificial Opening Endoscopic, Diagnostic (ICD-10-PCS; 2022-12-24)
PROC: 0DB48ZX Excision of Esophagogastric Junction, Via Natural or Artificial Opening Endoscopic, Diagnostic (ICD-10-PCS; 2022-12-24)
PROC: 0DB98ZX Excision of Duodenum, Via Natural or Artificial Opening Endoscopic, Diagnostic (ICD-10-PCS; principal; 2022-12-24 12:00)
DX: K21.00 Gastro-esophageal reflux disease with esophagitis, without bleeding (principal); K29.50 Unspecified chronic gastritis without bleeding; I10 Essential (primary) hypertension; E11.9 Type 2 diabetes mellitus without complications; Z79.4 Long term (current) use of insulin
CPT/HCPCS: 88305-TC; 88342-TC

== ENCOUNTER → 2023-02-15 | Day surgery (SDC) | payer OTHER | END | disposition home or self-care (01) | LOC: JRADIR 09:30 | PROVIDERS: ATTEND Internal Medicine Endocrinology, Diabetes & Metabolism | PROC: 0G9G3ZX Drainage of Left Thyroid Gland Lobe, Percutaneous Approach, Diagnostic (ICD-10-PCS; principal; 2023-02-15) | DX: E04.1 Nontoxic single thyroid nodule (principal) | CPT/HCPCS: 10005; 76942; 88173; 88305-TC ==